=== PATIENT | female | born 1995 | race Caucasian/White ===

== ENCOUNTER → 2017-08-16 | Day surgery (SDC) | payer OTHER ==
--- NOTE | 2017-08-14 13:05 | MH ---
cc: Rc Stephen MD DATE OF ADMISSION: 08/16/2017 CHIEF COMPLAINT: Chronic tonsillitis. HISTORY OF PRESENT ILLNESS: This is a 22-year-old female with chronic recurrent tonsillitis, tonsil hypertrophy. She has not responded to medical therapy. Plan is for tonsillectomy. PAST MEDICAL HISTORY: Shows ALLERGIES: NO KNOWN DRUG ALLERGIES. MEDICATIONS: Include control pills, levothyroxine, previous prednisone. PHYSICAL EXAMINATION: GENERAL: Well-developed, well-nourished female, in no apparent distress. HEENT: Normocephalic and atraumatic. Extraocular motions intact. External ear canals clear. Lips, oral mucosa and oropharynx show no lesion. Tonsils 3+ with erythema. Nasal exam shows no lesions. NECK: Shows no masses. CHEST: Clear to auscultation. HEART: Regular rate. ABDOMEN: Soft. EXTREMITIES: No lesions. NEUROLOGIC: Nonfocal. ASSESSMENT AND PLAN: This is a 22-year-old female with chronic recurrent tonsillitis. The patient with tonsillectomy. Risks and benefits discussed with the patient and her mother. Risks include, but not limited to those of anesthesia, bleeding, unfavorable scarring, velopharyngeal insufficiency, dehydration, depression, abscess, voice change, bleeding, airway obstruction. The patient states she understands and accepts the risks of the procedure. Rc Stephen MD JPM/TL , 12:45 PM , 01:04 PM
[~2017-08-16] VITALS: Ht 167.6 cm; Wt 76.6 kg
[~2017-08-16] MED LIST: *morphine SULFATE 4 MG/ML PERIprocedure ONLY ONE; ACETAMINOPHEN 1000 MG/100 ML 100 ML IV ONE; ACETAMINOPHEN 325MG/HYDROcodone 7.5MG/15ML UDC PO PRN; CHLORHEXIDINE GLUCONATE 2 % 1 PACK (2 CLOTHS) TOPICAL PRN; DEXAMETHASONE SOD PHOS 4 MG/ML VIAL IV ONE; DEXAMETHASONE SOD PHOS 4 MG/ML VIAL ONE; DO NOT ADM ANY ANTICOAGULANT DRUGS PRN; GLYCOPYRROLATE 1 MG/5 ML SYRINGE IV PUSH ONE; LACTATED RINGER'S 1000 ML IV PRN; LEVO137T2 PO; LIDOCAINE HCL 1% PF 5 ML SYRINGE OTHER ONE; METOPROLOL TARTRATE 25 MG TAB PO PRN; MIDAZOLAM HCL 2 MG/2 ML VIAL ONE; MORPHINE SULFATE 4 MG/ML INJ IV PRN; MORPHINE SULFATE 4 MG/ML INJ ONE; ONDANSETRON HCL 4 MG/2 ML VIAL IV ONE; ONDANSETRON HCL 4 MG/2 ML VIAL IV PUSH PRN; ORTHTAB4 PO; POVIDONE IODINE 5% (ANTISEPSIS KIT) 4 APPLICATIONS EACH NARE PRN; PROPOFOL 200 MG/20 ML AMP IV ONE; ROCURONIUM INJ 50 MG/5 ML SYRINGE IV PUSH ONE; SODIUM CHLORID 0.9% 500 ML IV PRN; SUGAMMADEX SODIUM 200 MG/2 ML VIAL IV PUSH ONE; ceFAZolin INJ 1,000 MG VIAL ONE
[2017-08-16 06:37] LABS: AUTOMATED NEUTROPHIL # 6.4 TH/MM3 (1.8-7.7); BASOPHIL # 0.1 TH/MM3 (0-0.2); BASOPHIL % 0.5 % (0.0-2.0); EOSINOPHIL # 0.2 TH/MM3 (0-0.4); EOSINOPHIL % 1.6 % (0.0-4.0); HEMATOCRIT 40.4 % (35.0-46.0); HEMOGLOBIN 13.6 GM/DL (11.6-15.3); LYMPH % 31.2 % (9.0-44.0); LYMPHOCYTE # 3.3 TH/MM3 (1.0-4.8); MEAN CELL VOLUME 85.9 FL (80.0-100.0); MEAN CORPUSCULAR HEMOGLOBIN 28.9 PG (27.0-34.0); MEAN CORPUSCULAR HGB CONC 33.6 % (32.0-36.0); MEAN PLATELET VOLUME 8.9 FL (7.0-11.0); MONO % 6.1 % (0.0-8.0); MONOCYTE # 0.6 TH/MM3 (0-0.9); NEUT % 60.6 % (16.0-70.0); PLATELET COUNT 343 TH/MM3 (150-450); RED BLOOD COUNT 4.71 MIL/MM3 (4.00-5.30); RED CELL DISTRIBUTION WIDTH 12.4 % (11.6-17.2); WHITE BLOOD COUNT 10.6 TH/MM3 (4.0-11.0)
--- NOTE | 2017-08-16 08:16 | MP ---
cc: Rc Stephen MD DATE OF OPERATION: 08/16/2017 INDICATIONS: A 22-year-old female with chronic tonsillitis, tonsillar hypertrophy. The patient has not responded to medical therapy. Plan is for tonsillectomy. PREOPERATIVE DIAGNOSIS: Chronic, recurrent tonsillitis, tonsillar hypertrophy. POSTOPERATIVE DIAGNOSIS: Chronic, recurrent tonsillitis, tonsillar hypertrophy. PROCEDURE: Tonsillectomy. SUMMARY: The patient was brought to the operating room, placed in supine position, successfully placed under general anesthesia, prepared in the usual fashion for this procedure. The oral cavity exposed with retractors. No submucosal cleft. The right tonsil was removed with Coblation technique from superior to inferior. Left tonsil removed in a similar fashion. Both tonsil beds inspected for hemostasis, obtained by suction cautery. The patient was suctioned and retractors removed. She was awakened, extubated, and taken to recovery in stable condition. Rc Stephen MD JPM/TL , 07:59 AM , 08:15 AM
[2017-08-16 09:30] VITALS: BP 113/67; PULSE 77; RESP 20; TEMP 97.4; O2SAT 97
== END | disposition home or self-care (01) ==
LOC: HSDC 05:37
PROVIDERS: ATTEND Specialist
DX: J35.01 Chronic tonsillitis (principal); E86.0 Dehydration
CPT/HCPCS: 00170; 42826; 85025; 88304; J0131; J0690; J1100; J2250; J2270; J2405; J3010; J7120

== ENCOUNTER 2017-08-24 21:06 | Emergency (ER) | payer OTHER ==
[~2017-08-24] VITALS: Ht 167.6 cm; Wt 80.0 kg
[~2017-08-24 21:06] MED LIST changes: -*morphine SULFATE 4 MG/ML PERIprocedure ONLY ONE; -ACETAMINOPHEN 1000 MG/100 ML 100 ML IV ONE; -ACETAMINOPHEN 325MG/HYDROcodone 7.5MG/15ML UDC PO PRN; -CHLORHEXIDINE GLUCONATE 2 % 1 PACK (2 CLOTHS) TOPICAL PRN; -DEXAMETHASONE SOD PHOS 4 MG/ML VIAL IV ONE; -DEXAMETHASONE SOD PHOS 4 MG/ML VIAL ONE; -DO NOT ADM ANY ANTICOAGULANT DRUGS PRN; -GLYCOPYRROLATE 1 MG/5 ML SYRINGE IV PUSH ONE; -LACTATED RINGER'S 1000 ML IV PRN; -LIDOCAINE HCL 1% PF 5 ML SYRINGE OTHER ONE; -METOPROLOL TARTRATE 25 MG TAB PO PRN; -MIDAZOLAM HCL 2 MG/2 ML VIAL ONE; -MORPHINE SULFATE 4 MG/ML INJ IV PRN; -MORPHINE SULFATE 4 MG/ML INJ ONE; -ONDANSETRON HCL 4 MG/2 ML VIAL IV ONE; -ONDANSETRON HCL 4 MG/2 ML VIAL IV PUSH PRN; -POVIDONE IODINE 5% (ANTISEPSIS KIT) 4 APPLICATIONS EACH NARE PRN; -PROPOFOL 200 MG/20 ML AMP IV ONE; -ROCURONIUM INJ 50 MG/5 ML SYRINGE IV PUSH ONE; -SODIUM CHLORID 0.9% 500 ML IV PRN; -SUGAMMADEX SODIUM 200 MG/2 ML VIAL IV PUSH ONE; -ceFAZolin INJ 1,000 MG VIAL ONE
[2017-08-24 21:17] VITALS: BP 141/87; PULSE 88; RESP 16; TEMP 98.9; O2SAT 100
[2017-08-25] MEDS ORDERED: METOCLOPRAMIDE HCL 10 MG/2 ML VIAL IV PUSH ONE (00:30)
[2017-08-25] MEDS ORDERED: SODIUM CHLORIDE 0.9% FLUSH 10 ML FLUSH IVF PRN (00:30)
[2017-08-25] MEDS ORDERED: MORPHINE SULFATE 2 MG/ML SYRINGE IV PUSH ONE (00:30)
[2017-08-25] MEDS ORDERED: SODIUM CHLOR 0.9% 1000 ML INJ 1,000 ML IV ONE (00:30)
[2017-08-25] MEDS ORDERED: MORPHINE SULFATE 4 MG/ML INJ ONE (00:36)
[2017-08-25 00:48] LABS: AUTOMATED NEUTROPHIL # 9.2 TH/MM3 (1.8-7.7); BASOPHIL # 0.4 TH/MM3 (0-0.2); BASOPHIL % 3.5 % (0.0-2.0); EOSINOPHIL # 0.1 TH/MM3 (0-0.4); EOSINOPHIL % 0.8 % (0.0-4.0); HEMATOCRIT 35.9 % (35.0-46.0); HEMOGLOBIN 12.2 GM/DL (11.6-15.3); LYMPH % 15.2 % (9.0-44.0); LYMPHOCYTE # 1.9 TH/MM3 (1.0-4.8); MEAN CELL VOLUME 85.5 FL (80.0-100.0); MEAN CORPUSCULAR HEMOGLOBIN 28.9 PG (27.0-34.0); MEAN CORPUSCULAR HGB CONC 33.8 % (32.0-36.0); MEAN PLATELET VOLUME 9.5 FL (7.0-11.0); MONO % 6.9 % (0.0-8.0); MONOCYTE # 0.9 TH/MM3 (0-0.9); NEUT % 73.6 % (16.0-70.0); PLATELET COUNT 311 TH/MM3 (150-450); RED CELL DISTRIBUTION WIDTH 11.9 % (11.6-17.2); WHITE BLOOD COUNT 12.5 TH/MM3 (4.0-11.0)
[2017-08-25 01:00] LABS: BICARBONATE 27.6 MEQ/L (21.0-32.0); CALCIUM 8.9 MG/DL (8.5-10.1); CREATININE 0.85 MG/DL (0.50-1.00)
[2017-08-25 01:58] LABS: BANDS 7 % (0-6); LYMPHOCYTES 16 % (9-44); METAMYELOCYTES 1 % (0-1); MONOCYTES 6 % (0-8); NEUTROPHIL # MANUAL DIFF 9.8 TH/MM3 (1.8-7.7); POLYS (SEG NEUTROPHILS) 70 % (16-70)
[2017-08-25] MEDS ORDERED: cefTRIAXone INJ 1,000 MG in SODIUM CHLORIDE 0.9% INJ 100 ML IV ONE (03:15)
--- NOTE | 2017-08-25 03:16 | PD ---
HPI Chief Complaint: Bleeding Time Seen by Provider: 00:19 Travel History International Travel<30 days: No Contact w/Intl Traveler<30days: No Traveled to known affect area: No History of Present Illness HPI 22-year-old female presents to the emergency department by private transportation the care of her parents for evaluation of throat pain and coughing up blood. Patient underwent elective tonsillectomy 1 week ago. Patient has had intermittent coughing up blood with some phlegm or saliva. Mother reports this evening approximately 3 hours of spitting up blood so finally contacted the on-call ENT who recommended the patient come to the emergency room for evaluation. No spitting up or vomiting blood here in the emergency department. Patient reports intermittent sensation of something stuck in her throat or flapping in the back of her throat on the right side. Patient was recently seen by her ear nose and surgeon stated that her uvula is swollen which is expected and that she might have some intermittent bleeding. No report of dizziness near syncope or syncope. No report of shortness of breath. Patient has had some persistent hoarseness which has not worsened and there has been no stridor. Patient rates pain 8/10 in intensity. Patient is currently taking pain medication hydrocodone as prescribed as needed and Tylenol in between narcotic doses. Patient is not taking any nonsteroidal anti- inflammatories. Patient has also had some constipation and did take 2 total doses of MiraLAX. PFSH Past Medical History Cardiovascular Problems: No Diabetes: No Diminished Hearing: No Endocrine: Yes Genitourinary: No Hepatitis: No Hiatal Hernia: No Immune Disorder: No Musculoskeletal: No Neurologic: No Psychiatric: No Reproductive: No Respiratory: No Immunizations Current: Yes Thyroid Disease: Yes (HYPO) Tetanus Vaccination: Unknown Influenza Vaccination: Yes ?: Not Past Surgical History AICD: No Joint Replacement: No Pacemaker: No Tonsillectomy: Yes Social History Alcohol Use: No Tobacco Use: No Substance Use: No Allergies-Medications (Allergen,Severity, Reaction): Coded Allergies: No Known Allergies (Verified Allergy, Mild, 08/24/17) Reported Meds & Prescriptions Reported Meds & Active Scripts Active Reported Ortho Tri-Cyclen (Norgestimate-Ethinyl Estradiol) 0.18/0.215/0.25 mg-35 Mcg Tab 1 Tab PO DAILY Levothyroxine (Levothyroxine Sodium) 137 Mcg Tab 137 Mcg PO DAILY Review of Systems Except as stated in HPI: all other systems reviewed are Neg Physical Exam Narrative GENERAL: Well-developed well-nourished female no acute distress no respiratory distress; mild hoarseness no stridor. SKIN: Warm and dry. HEAD: Normocephalic. EYES: No scleral icterus. No injection or drainage. ENT: Mucous membranes moist airway is patent mild uvula midline edema and evidence of recent tonsillectomy with no active bleeding no evidence of bleeding or clots in posterior pharynx. NECK: Supple, trachea midline. No JVD or lymphadenopathy. CARDIOVASCULAR: Regular rate and rhythm without murmurs, gallops, or rubs. RESPIRATORY: Breath sounds equal bilaterally. No accessory muscle use. GASTROINTESTINAL: Abdomen soft, non-tender, nondistended. MUSCULOSKELETAL: No cyanosis, or edema. BACK: Nontender without obvious deformity. No CVA tenderness. Data Data Last Documented VS Vital Signs Date Time Temp Pulse Resp B/P (MAP) Pulse Ox O2 Delivery O2 Flow Rate FiO2 08/24/17 21:17 98.9 88 16 141/87 (105) 100 Orders Orders Basic Metabolic Panel (Bmp) (08/25/17 00:19) Complete Blood Count With Diff (08/25/17 00:19) Iv Access Insert/Monitor (08/25/17 00:19) Sodium Chloride 0.9% Flush (Ns Flush) (08/25/17 00:30) Sodium Chlor 0.9% 1000 Ml Inj (Ns 1000 M (08/25/17 00:30) Metoclopramide Inj (Reglan Inj) (08/25/17 00:30) Morphine Inj (Morphine Inj) (08/25/17 00:30) Morphine Inj (Morphine Inj) (08/25/17 00:36) Ceftriaxone Inj (Rocephin Inj) (08/25/17 03:15) Ed Discharge Order (08/25/17 03:13) Labs Laboratory Tests Test 08/25/17 00:30 White Blood Count 12.5 TH/MM3 Red Blood Count 4.20 MIL/MM3 Hemoglobin 12.2 GM/DL Hematocrit 35.9 % Mean Corpuscular Volume 85.5 FL Mean Corpuscular Hemoglobin 28.9 PG Mean Corpuscular Hemoglobin Concent 33.8 % Red Cell Distribution Width 11.9 % Platelet Count 311 TH/MM3 Mean Platelet Volume 9.5 FL Neutrophils (%) (Auto) 73.6 % Lymphocytes (%) (Auto) 15.2 % Monocytes (%) (Auto) 6.9 % Eosinophils (%) (Auto) 0.8 % Basophils (%) (Auto) 3.5 % Neutrophils # (Auto) 9.2 TH/MM3 Lymphocytes # (Auto) 1.9 TH/MM3 Monocytes # (Auto) 0.9 TH/MM3 Eosinophils # (Auto) 0.1 TH/MM3 Basophils # (Auto) 0.4 TH/MM3 CBC Comment AUTO DIFF Differential Total Cells Counted 100 Neutrophils % (Manual) 70 % Band Neutrophils % 7 % Lymphocytes % 16 % Monocytes % 6 % Neutrophils # (Manual) 9.8 TH/MM3 Metamyelocytes 1 % Differential Comment FINAL DIFF MANUAL Platelet Estimate NORMAL Platelet Morphology Comment NORMAL Blood Urea Nitrogen 11 MG/DL Creatinine 0.85 MG/DL Random Glucose 78 MG/DL Calcium Level 8.9 MG/DL Sodium Level 139 MEQ/L Potassium Level 4.0 MEQ/L Chloride Level 102 MEQ/L Carbon Dioxide Level 27.6 MEQ/L Anion Gap 9 MEQ/L Estimat Glomerular Filtration Rate 85 ML/MIN MDM Medical Decision Making Medical Screen Exam Complete: Yes Emergency Medical Condition: Yes Medical Record Reviewed: Yes Differential Diagnosis Sore throat, postoperative pain, postoperative bleeding, pharyngitis, retropharyngeal abscess Narrative Course IV access obtained specimens collections of resulting patient administered IV fluid bolus 1 L normal saline along with Toradol 30 sent for 7% bands by manual differential; patient given one-time dose of Rocephin Patient has had no nausea no vomiting no saliva with streaks of blood and no gross bleeding; vital signs are in normal range patient is tolerating oral hydration well. Patient is stable for outpatient management and follow-up with her ENT 1 day Diagnosis Primary Impression: Sore throat Additional Impressions: Status post tonsillectomy Postoperative bleeding from mouth Referrals: Ear / Nose / Throat Specialist 1 day Patient Instructions: General Instructions, Narcotic given in the ED Additional Instructions: Increase fluid hydration Follow-up with your nose and throat specialist/group; call office this a.m. Take acetaminophen as needed for fever 100.4F or greater or for minor pain May take MiraLAX as directed for opiate related constipation May take infrequently as tolerated ibuprofen 600 mg as often as every 6 to 8 hours for pain associated with inflammation Return to the emergency department for any concerns or change in condition Med/Other Pt SpecificInfo: No Change to Meds Disposition: 01 DISCHARGE HOME Condition: Stable Roula Osman MD August 25, 2017 03:16
== END 2017-08-25 04:25 | disposition home or self-care (01) ==
LOC: NEPC 21:06
DX: J02.9 Acute pharyngitis, unspecified (principal); K91.840 Postprocedural hemorrhage of a digestive system organ or structure following a digestive system procedure; E03.9 Hypothyroidism, unspecified; Z79.899 Other long term (current) drug therapy
CPT/HCPCS: 80048; 85007; 85027; 96361; 96374; 96375; 99284; J0696; J2270; J2765; J7030